=== PATIENT | female | born 1975 | race Caucasian/White ===

== ENCOUNTER 2017-01-04 07:05 | Day surgery (SDC) | payer OTHER ==
[~2017-01-04] VITALS: Ht 165.1 cm; Wt 104.1 kg
[~2017-01-04 07:05] MED LIST: BUPIVACAINE HCL/PF 0.25% 30 ML VIAL ONE; GUM MASTIC/STORAX/MSAL/ALCOHOL LIQUID 0.67 ML VIAL TP ONE; IOHEXOL 240 MG/ML 20 ML VIAL ONE; SODIUM CL IRRIG SOLN BAG 3,000 ML IRRIG ONE
[2017-01-04] MEDS ORDERED: RINGERS SOLUTION,LACTATED 1,000 ML IV ONE ×3 (07:30→10:54)
[2017-01-04] MEDS ORDERED: CefoTEtan DISOD 1 GM/DEXTROSE 50 ML IV ONE (09:00)
[2017-01-04] MEDS: BUPIVACAINE 0.25%/EPI 1:200,000/PF 10 ML VIAL ONE ×2 (10:00→10:14)
[2017-01-04] MEDS: HYDROmorphone 2 MG/ML SYRINGE IVP PRN ×4 (10:25→11:15)
[2017-01-04] MEDS ORDERED: MEPERIDINE-PF 25 MG/ML SYRINGE IVP PRN (10:30)
[2017-01-04] MEDS ORDERED: FentaNYL CITRATE-PF 100 MCG/2 ML VIAL IVP PRN (10:30)
[2017-01-04] MEDS ORDERED: HYDROmorphone 2 MG/ML SYRINGE ONE (10:54)
[2017-01-04] MEDS ORDERED: ONDANSETRON HCL 4 MG/2 ML VIAL ONE (11:09)
[2017-01-04] MEDS ORDERED: ONDANSETRON HCL 4 MG/2 ML VIAL IVP STA (11:15)
[2017-01-04] MEDS ORDERED: MEPERIDINE-PF 25 MG/ML SYRINGE ONE (11:25)
[2017-01-04] MEDS ORDERED: HYDROCODONE/ACETAMINOPHEN 5-325 MG TABLET ONE (12:04)
[2017-01-04] MEDS ORDERED: HYDROCODONE/ACETAMINOPHEN 5-325 MG TABLET PO ONE (12:15)
[2017-01-04] MEDS ORDERED: ROCURONIUM BROMIDE 10 MG/ML 5 ML VIAL IVP ONE (13:24)
[2017-01-04] MEDS ORDERED: ONDANSETRON HCL 4 MG/2 ML VIAL IVP ONE (13:24)
[2017-01-04] MEDS ORDERED: DEXAMETHASONE SOD PHOS 4 MG/ML VIAL IVP ONE (13:24)
[2017-01-04] MEDS ORDERED: LIDOCAINE HCL/PF 2% 5 ML VIAL IM ONE (13:24)
[2017-01-04] MEDS ORDERED: PROPOFOL 1% 20 ML VIAL IVP ONE (13:24)
[2017-01-04] MEDS ORDERED: GLYCOPYRROLATE 0.2 MG/ML VIAL IM ONE (13:24)
[2017-01-04] MEDS ORDERED: NEOSTIGMINE METHYLSULFATE 1 MG/ML 10 ML VIAL IVP ONE (13:24)
[2017-01-04] MEDS ORDERED: MIDAZOLAM HCL 2 MG/2 ML VIAL IVP ONE (13:24)
[2017-01-04] MEDS ORDERED: KETOROLAC TROMETHAMINE 60 MG/2 ML VIAL IM ONE (13:24)
[2017-01-04] MEDS ORDERED: METOCLOPRAMIDE HCL 5 MG/ML 2 ML VIAL IVP ONE (13:24)
[2017-01-04] MEDS ORDERED: FentaNYL CITRATE-PF 100 MCG/2 ML VIAL IVP ONE (13:24)
[2017-01-04] MEDS ORDERED: OXYGEN THERAPY IH SCH (20:00)
== END 2017-01-04 13:25 | disposition home or self-care (01) ==
LOC: UNDOADMIN 07:05 → SDS 07:05 → 6N 07:05 → EDSTATUS 09:30 → SDS 13:25 → UNDODISIN 13:25
PROVIDERS: ATTEND Surgery
DX: K80.10 Calculus of gallbladder with chronic cholecystitis without obstruction (principal); Z98.51 Tubal ligation status; Z98.890 Other specified postprocedural states
CPT/HCPCS: 47562; 84703; 88304; J1100; J1170; J1885; J2175; J2250; J2405; J2704; J2765; J3010; J3490 ×5; J7120; Q9966

== ENCOUNTER 2018-03-23 00:30 | Emergency (ER) | payer OTHER ==
[~2018-03-23] VITALS: Ht 160 cm; Wt 95.5 kg
[2018-03-23 03:14] VITALS: BP 137/87
== END 2018-03-23 04:06 | disposition home or self-care (01) ==
LOC: EMS 00:31
DX: M79.672 Pain in left foot (principal)
CPT/HCPCS: 99284

== ENCOUNTER → 2018-10-02 | Emergency (ER) | payer SELFPAY ==
[~2018-10-02] VITALS: Ht 160 cm; Wt 92.3 kg
[~2018-10-02] MED LIST changes: +BARIUM SULFATE 0.1% SUSPENSION 450 ML BOTTLE PO ONE; -BUPIVACAINE HCL/PF 0.25% 30 ML VIAL ONE; +FentaNYL CITRATE-PF 100 MCG/2 ML VIAL IVP ONE; -GUM MASTIC/STORAX/MSAL/ALCOHOL LIQUID 0.67 ML VIAL TP ONE; -IOHEXOL 240 MG/ML 20 ML VIAL ONE; +IOVERSOL 320 MG/ML 100 ML VIAL ONE; +ONDANSETRON HCL 4 MG/2 ML VIAL IVP ONE; +SODIUM CHLORIDE 0.9% 1,000 ML IV ONE; +SODIUM CHLORIDE 0.9% 100 ML ONE; -SODIUM CL IRRIG SOLN BAG 3,000 ML IRRIG ONE
[2018-10-02 15:16] LABS: BASOPHILS % (AUTO) 0.2 % (0.0-2.0); EOSINOPHILS % (AUTO) 1.1 % (1.0-6.0); HEMATOCRIT 34.9 % (36-46); HEMOGLOBIN 12.2 g/dL (12.0-16.0); LYMPHOCYTES # (AUTO) 2.4 K/uL (1.0-4.8); LYMPHOCYTES % (AUTO) 24.5 % (22.0-44.0); MEAN CORPUSCULAR HEMOGLOBIN 27.3 pg (26.0-34.0); MEAN CORPUSCULAR HGB CONC 35.1 G/dL (31.0-37.0); MEAN CORPUSCULAR VOLUME 78 fL (80-100); MONOCYTES # (AUTO) 0.8 K/uL (0.1-1.0); MONOCYTES % (AUTO) 7.9 % (2.0-9.0); NEUTROPHILS # (AUTO) 6.6 K/uL (1.8-7.7); NEUTROPHILS % (AUTO) 66.3 % (40.0-70.0); PLATELET COUNT (AUTO) 219 K/uL (150-450); RED BLOOD CELL COUNT(AUTO) 4.48 MIL/uL (4.00-5.20); RED CELL DISTRIBUTION WIDTH 13.6 % (11.5-14.5)
[2018-10-02 15:23] LABS: ANION GAP 1 mmol/L (8-16); CALCIUM, TOTAL 8.3 mg/dL (8.8-10.5); CARBON DIOXIDE 30 mmol/L (22-29); CHLORIDE 104 mmol/L (98-107); CREATININE 0.56 mg/dL (0.60-1.30); GLOMERULAR FILTR. RATE CALC > 60 mL/min (>60); GLUCOSE,RANDOM 75 mg/dL (70-110); POTASSIUM 3.7 mmol/L (3.5-5.1); SODIUM SERUM 135 mmol/L (136-145); UREA NITROGEN, BLOOD 15 mg/dL (7-18)
[2018-10-02 15:29] LABS: ALANINE AMINOTRANSFERASE 16 U/L (12-78); ALBUMIN 3.4 g/dL (3.4-5.0); ALKALINE PHOSPHATASE 71 U/L (46-116); ASPARTATE AMINOTRANSFERASE 18 U/L (15-37); BILIRUBIN,TOTAL 0.5 mg/dL (0.1-1.0); LIPASE 103 U/L (73-393); TOTAL PROTEIN, SERUM 6.8 g/dL (6.4-8.2)
[2018-10-02 15:46] LABS: PLATELET MORPHOLOGY COMMENT NORMAL
[2018-10-02 15:50] LABS: APPEARANCE,URINE CLOUDY (CLEAR); BILIRUBIN,URINE NEGATIVE (NEGATIVE); GLUCOSE, URINE (UA) NEGATIVE (NEGATIVE); KETONES,URINE NEGATIVE (NEGATIVE); LEUKOCYTE ESTERASE ,URINE NEGATIVE (NEGATIVE); NITRATE,URINE NEGATIVE (NEGATIVE); OCCULT BLOOD,URINE NEGATIVE (NEGATIVE); PROTEIN,URINE NEGATIVE (NEGATIVE)
[2018-10-02 16:01] LABS: AMORPHOUS SEDIMENT,UR Few /LPF (None Seen); BACTERIA,URINE None Seen /HPF (None Seen); RBC,URINE None Seen /HPF (0-2); SQUAMOUS EPITHELIAL CELL,UR Few /LPF (None Seen); WBC,URINE 0-2 /HPF (0-5)
[2018-10-02 17:37] VITALS: BP 115/87
== END | disposition home or self-care (01) ==
LOC: EMS 13:03
DX: K29.70 Gastritis, unspecified, without bleeding (principal)
CPT/HCPCS: 36415; 71045; 74177; 80053; 81001; 83690; 84484; 85025; 93005; 96361; 96374; 96375; 99284; J2405; J3010; J7030; J7050; Q9967

== ENCOUNTER 2019-11-17 22:24 | Emergency (ER) | payer SELFPAY ==
[~2019-11-17] VITALS: Ht 157.5 cm; Wt 77.3 kg
[2019-11-17 23:00] VITALS: BP 132/84
== END 2019-11-18 00:15 | disposition home or self-care (01) ==
LOC: EMS 22:27
DX: J06.9 Acute upper respiratory infection, unspecified (principal)

== ENCOUNTER 2020-10-07 07:24 | Emergency (ER) | payer SELFPAY ==
[~2020-10-07] VITALS: Ht 167.6 cm; Wt 73.0 kg
[2020-10-07 07:44] VITALS: BP 117/61
[2020-10-07] MEDS ORDERED: LIDOCAINE 5% TRANSDERMAL PATCH TD ONE (07:45)
[2020-10-07] MEDS ORDERED: KETOROLAC TROMETHAMINE 30 MG/ML VIAL IM ONE (07:45)
[2020-10-07] MEDS ORDERED: ACETAMINOPHEN 500 MG TABLET PO ONE (07:45)
== END 2020-10-07 07:59 | disposition home or self-care (01) ==
LOC: EMS 07:29
DX: S29.012A Strain of muscle and tendon of back wall of thorax, initial encounter (principal); M54.12 Radiculopathy, cervical region; M25.512 Pain in left shoulder; Z90.710 Acquired absence of both cervix and uterus; X58.XXXA Exposure to other specified factors, initial encounter; Y93.89 Activity, other specified; Y92.89 Other specified places as the place of occurrence of the external cause; Y99.8 Other external cause status
CPT/HCPCS: 96372; 99283; J1885

== ENCOUNTER 2024-07-14 14:28 | Emergency (ER) | payer MEDICAID ==
[~2024-07-14] VITALS: Ht 165.1 cm; Wt 81.8 kg
[2024-07-14 14:32] VITALS: TEMP 98
[2024-07-14] MEDS: HYDROCODONE/ACETAMINOPHEN 5-325 MG TABLET PO ONE (18:12)
[2024-07-14] MEDS: ONDANSETRON 4 MG TABLET PO ONE (18:12)
[2024-07-14 18:54] LABS: BASOPHILS % (AUTO) 0.7 % (0.0-2.0); EOSINOPHILS % (AUTO) 1.5 % (1.0-6.0); HEMATOCRIT 35.1 % (36-46); LYMPHOCYTES # (AUTO) 2.2 K/uL (1.0-4.8); LYMPHOCYTES % (AUTO) 34.1 % (22.0-44.0); MEAN CORPUSCULAR HEMOGLOBIN 26.1 pg (26.0-34.0); MEAN CORPUSCULAR HGB CONC 34.2 G/dL (31.0-37.0); MEAN CORPUSCULAR VOLUME 76 fL (80-100); MONOCYTES # (AUTO) 0.5 K/uL (0.1-1.0); NEUTROPHILS # (AUTO) 3.6 K/uL (1.8-7.7); NEUTROPHILS % (AUTO) 55.7 % (40.0-70.0); PLATELET COUNT (AUTO) 224 K/uL (150-450); RED CELL DISTRIBUTION WIDTH 14.3 % (11.5-14.5); WHITE BLOOD COUNT (AUTO) 6.5 K/uL (4.5-11.0)
[2024-07-14 19:05] LABS: ANION GAP 4 mmol/L (8-16); CALCIUM, TOTAL 8.6 mg/dL (8.8-10.5); CARBON DIOXIDE 29 mmol/L (22-29); CHLORIDE 103 mmol/L (98-107); CREATININE 0.73 mg/dL (0.60-1.30); GLOMERULAR FILTR. RATE CALC > 60 mL/min (>60); GLUCOSE,RANDOM 91 mg/dL (70-110); POTASSIUM 3.7 mmol/L (3.5-5.1); SODIUM SERUM 136 mmol/L (136-145); UREA NITROGEN, BLOOD 8 mg/dL (7-18)
[2024-07-14 19:06] LABS: LIPASE 21 U/L (16-77)
[2024-07-14 20:00] VITALS: BP 125/74; PULSE 65; RESP 17; O2SAT 98
[2024-07-14] MEDS ORDERED: OMEP20 PO (21:06)
[2024-07-14] MEDS ORDERED: IBUP-1554 PO (21:06)
[2024-07-14] MEDS ORDERED: HYDR-4062 PO (21:06)
== END 2024-07-14 21:27 | disposition home or self-care (01) ==
LOC: EMS 14:28
DX: R10.12 Left upper quadrant pain (principal); R07.89 Other chest pain; Z90.49 Acquired absence of other specified parts of digestive tract; Z90.710 Acquired absence of both cervix and uterus; Z90.89 Acquired absence of other organs; Z98.890 Other specified postprocedural states
CPT/HCPCS: 99284; 76700; 80048; 83690; 85025; 36415; 71100; Q0162